=== PATIENT | male | born 1990 | race Caucasian/White ===

== ENCOUNTER 2017-06-06 13:29 | Emergency (ER) | payer OTHER ==
[~2017-06-06] VITALS: Ht 162.6 cm; Wt 81.3 kg
[2017-06-06] MEDS ORDERED: SODIUM CHLORIDE 0.9% 1,000 ML IV ONE (14:06)
[2017-06-06] MEDS ORDERED: ASPIRIN 81 MG TABLET CHEW ONE (14:17)
[2017-06-06 14:30] LABS: HEMATOCRIT 48.7 % (39.2-51.8); HEMOGLOBIN 16.6 g/dL (13.7-18.0); WHITE BLOOD COUNT 7.4 x10^3/uL (3.4-10)
[2017-06-06] MEDS ORDERED: SODIUM CHLORIDE FLUSH 10ML SYR IVF ONE (14:30)
[2017-06-06] MEDS ORDERED: ASPIRIN 81 MG TABLET CHEW PO ONE (14:30)
[2017-06-06 14:38] LABS: ASPARTATE AMINO TRANSFERASE 26 U/L (15-37); BLOOD UREA NITROGEN 12 mg/dL (7-18)
[2017-06-06 14:44] LABS: IS PT STATUS REG ER OR PRE ER? YES
[2017-06-06 15:45] LABS: DAU SCREEN DISCLAIMER
[2017-06-06 16:28] VITALS: BP 137/98
== END 2017-06-06 16:30 | disposition home or self-care (01) ==
LOC: ED 16:00
DX: R07.89 Other chest pain (principal)
CPT/HCPCS: 36415; 71010; 80053; 80307; 84484; 85025; 93005; 96360; 96361; 99285; J7030

== ENCOUNTER 2019-01-24 02:01 | Emergency (ER) | payer BC ==
[~2019-01-24] VITALS: Ht 162.6 cm; Wt 86.5 kg
[2019-01-24 02:04] VITALS: BP 173/84
[2019-01-24] MEDS ORDERED: MAALOX/HYOSCYAMINE/LIDOCAINE 45 ML BTL PO ONE (02:30)
[2019-01-24] MEDS ORDERED: MAALOX/HYOSCYAMINE/LIDOCAINE 45 ML BTL ONE (02:37)
--- NOTE | 2019-01-24 02:41 | NUR ---
PT AMBULATED TO XRAY WITH TECH.
== END 2019-01-24 03:59 | disposition home or self-care (01) ==
LOC: ED 03:51
DX: R07.89 Other chest pain (principal); Z87.891 Personal history of nicotine dependence
CPT/HCPCS: 71046; 93005; 99283